=== PATIENT | female | born 1950 | race Caucasian/White ===

== ENCOUNTER → 2018-03-03 | Outpatient (CLI) | payer OTHER ==
[~2018-03-03] MED LIST: ALPRAZOLAM0.5 M2 PO; AMBIEN 5 MG TABL5 M1 PO; ATORVASTATIN CA40 MG PO; BUPROPION XL150 MG PO; COLACE100 MG PO; FUROSEMIDE 40 M40 M1 PO; HYDROCODON-ACE1 EAC7 PO; IBUPROFEN 800800 M1 PO; LISINOPRIL20 MG PO; METAMUCIL1 EAC1 PO; MILK OF MA2400 MG/10 PO; NEURONTIN 300300 M1 PO; PERCOCET PO; SERTRALINE HCL50 MG PO; TRAZODONE HCL100 MG PO; TYLENOL325 MG PO; XANAX1 MG PO; XARELTO10 MG PO
== END ==
LOC: M.MRI 08:26
DX: S83.242A Other tear of medial meniscus, current injury, left knee, initial encounter (principal); M17.12 Unilateral primary osteoarthritis, left knee; M25.462 Effusion, left knee; X58.XXXA Exposure to other specified factors, initial encounter; Y93.89 Activity, other specified; Y92.89 Other specified places as the place of occurrence of the external cause; Y99.8 Other external cause status

== ENCOUNTER 2018-03-21 08:09 | Inpatient (IN) | payer OTHER ==
[2018-03-16 08:54] LABS: HEMATOCRIT 42.3 % (37.0-47.0); HEMOGLOBIN 14.7 gm/dL (12.0-15.0); MCH 33.5 pg (26.0-34.0); MCHC 34.9 g/dL (28.0-37.0); MCV 96.2 fL (80.0-100.0); MPV 7.1 fl. (7.2-11.1); RBC 4.4 mil/uL (4.20-5.00); RDW-CV 12.4 % (10.5-14.5); WBC 5.3 thou/uL (4.0-11.0)
[2018-03-16 09:12] LABS: ALBUMIN 3.8 g/dL (3.4-5.0); CALCIUM 9.3 mg/dL (8.5-10.1); CREATININE 1.1 mg/dL (0.6-1.3); POTASSIUM 3.8 mmol/L (3.5-5.1); TOTAL BILIRUBIN 0.6 mg/dL (<0.1-1.0); TOTAL PROTEIN 6.9 g/dL (6.4-8.2)
[2018-03-16 09:45] LABS: URINE BILIRUBIN NEGATIVE (Negative); URINE BLOOD NEGATIVE (Negative); URINE CLARITY CLOUDY; URINE COLOR YELLOW; URINE GLUCOSE-RANDOM NEGATIVE (Negative); URINE KETONES NEGATIVE (Negative); URINE LEUKOCYTES-REFLEX NEGATIVE (Negative); URINE NITRITE-REFLEX NEGATIVE (Negative); URINE PROTEIN NEGATIVE (Negative); URINE SPECIFIC GRAVITY 1.025 (1.005-1.030); URINE UROBILINOGEN 0.2 E.U./dl (0.2-1.0)
[2018-03-16 10:07] LABS: SQUAMOUS 4-10 Moderate /LPF (0-3)
[2018-03-16 10:09] LABS: MUCUS None Seen strn/LPF (None Seen); URINE RBC 0-2 Rare /HPF (0-2); URINE WBC-REFLEX 0-5 Rare /HPF (0-5)
[2018-03-16 10:10] LABS: CASTS None Seen /LPF (None Seen)
[2018-03-16 10:14] LABS: CRYSTALS None Seen /LPF (None Seen)
--- NOTE | 2018-03-16 11:43 | EKG ---
[place] [address] ELECTROCARDIOGRAM REPORT Name: SAM KU Room: PRE IN [facility]#: [id number] Admission: Attend Phys: Job Gonzalez Discharge: Date of : 50 Report #: [id number] THIS REPORT FOR: //name// [facility] Test Date: 2018-03-16 Test Time: 09:02:28 Pat Name: SAM KU Department: Room: Gender: F Stitcher Feeder: : 1950 Requested By: John Boggs Order Number: [id number] Reading MD: Orlando Sánchez Measurements Intervals Madeline Rate: 80 P: 53 SC: 158 QRS: 27 QRSD: 95 T: 4 QT: 427 QTc: 493 Interpretive Statements Sinus rhythm Consider left atrial enlargement Borderline T abnormalities, anterior leads Borderline prolonged QT interval No previous ECG available for comparison Electronically Signed On 03-16-2018 11:42:49 CDT by Orlando Sánchez [email or web address] <ELECTRONICALLY SIGNED> By: Orlando Sánchez MD, [facility] 03/16/18 1142 0902 09 Orlando Sánchez MD, FACC /EPI
[~2018-03-21] VITALS: Ht 167.6 cm; Wt 127.0 kg
[~2018-03-21 08:09] MED LIST changes: -ALPRAZOLAM0.5 M2 PO; -AMBIEN 5 MG TABL5 M1 PO; -COLACE100 MG PO; -HYDROCODON-ACE1 EAC7 PO; -IBUPROFEN 800800 M1 PO; -METAMUCIL1 EAC1 PO; -MILK OF MA2400 MG/10 PO; -NEURONTIN 300300 M1 PO; -PERCOCET PO; -TYLENOL325 MG PO; -XARELTO10 MG PO
[2018-03-21 14:23] VITALS: BP 122/60
[2018-03-21 20:00] VITALS: BP 134/87
[2018-03-22 00:38] VITALS: BP 108/55
[2018-03-22 04:00] VITALS: BP 129/68
[2018-03-22 04:19] LABS: HEMOGLOBIN 13.7 gm/dL (12.0-15.0)
[2018-03-22 08:30] VITALS: BP 125/54
[2018-03-22 16:27] VITALS: BP 116/57
[2018-03-22 20:00] VITALS: BP 113/48
[2018-03-23 00:37] VITALS: BP 117/49
[2018-03-23 04:18] LABS: HEMATOCRIT 36.4 % (37.0-47.0); HEMOGLOBIN 12.5 gm/dL (12.0-15.0)
[2018-03-23 09:23] VITALS: BP 109/44
[2018-03-23] MEDS ORDERED: ALPRAZOLAM0.5 M2 PO (10:45)
[2018-03-23] MEDS ORDERED: AMBIEN 5 MG TABL5 M1 PO (10:45)
[2018-03-23] MEDS ORDERED: HYDROCODON-ACE1 EAC7 PO (10:51)
[2018-03-23 12:34] VITALS: BP 109/44
[2018-03-23] MEDS ORDERED: COLACE100 MG PO (12:44)
[2018-03-23] MEDS ORDERED: TYLENOL325 MG PO ×2 (12:47)
[2018-03-23] MEDS ORDERED: MILK OF MA2400 MG/10 PO (12:48)
[2018-03-23] MEDS ORDERED: METAMUCIL1 EAC1 PO (12:49)
[2018-03-23] MEDS ORDERED: IBUPROFEN 800800 M1 PO (12:51)
[2018-03-23] MEDS ORDERED: NEURONTIN 300300 M1 PO (12:51)
[2018-03-23] MEDS ORDERED: PERCOCET PO (12:52)
[2018-03-23] MEDS ORDERED: XARELTO10 MG PO (12:53)
[2018-03-23] MEDS ORDERED: SERTRALINE HCL50 MG PO (12:55)
--- NOTE | 2018-04-04 11:47 | OP ---
[address] [address] OPERATIVE REPORT Name: SAM KU Room: [address] IN M.R.#: [id number] Admission: 03/21/18 Attend Phys: Job Gonzalez Discharge: 03/23/18 Date of : 50 Report #: [id number] THIS REPORT FOR: //name// CC: Amanda Marx DATE OF SERVICE: 03/21/2018 PREOPERATIVE DIAGNOSIS: Left knee osteoarthritis. POSTOPERATIVE DIAGNOSIS: Left knee osteoarthritis. PROCEDURE: Left total knee arthroplasty. SURGEON: John Boggs II, DO STATISTICAL CLERK ADVERTISING: YOLA Stoddard ANESTHESIA: General endotracheal. ESTIMATED BLOOD LOSS: 50 mL. ANTIBIOTICS: Ancef preoperatively. DRAINS: Medium Hemovac. COMPLICATIONS: None. DISPOSITION: Stable to recovery room. IMPLANTS: Listed in the operative record and progress note. BRIEF HISTORY: The patient was seen in the preoperative area. Preoperative H and P was performed. Site was marked, questions were answered and risks and benefits were discussed with the patient in detail about the surgery. The patient wished to proceed and assumed all risks. OPERATIVE PROCEDURE: The patient was taken to the operative suite and placed supine on the operating table, given appropriate anesthesia. A well-padded tourniquet applied to the upper thigh and was inflated to 300 mmHg after gravity exsanguination. The operative knee was sterilely prepped and draped. Surgery began by midline incision. This was carried down through the subcutaneous tissues. A medial parapatellar arthrotomy was performed and carried down to bone. The patella was then everted and excess soft tissue removed from around the femur. Femoral cutting block was then applied, checked with a drop ramses for [address] [address] OPERATIVE REPORT Name: SAM KU Room: [address]#: [id number] Admission: 03/21/18 Attend Phys: Job Gonzalez Discharge: 03/23/18 Date of : 50 Report #: [id number] rotational alignment, pinned in appropriate position and appropriate cuts were made. A 4-in-1 cutting block was then applied, checked for rotational alignment, pinned in appropriate position and appropriate cuts were made. The tibia was then exposed. The excess meniscus was removed. Retractor was placed along the collateral ligaments. The tibial cutting block was applied, pinned in appropriate position and checked with a drop ramses for rotational alignment and slope and appropriate cut was made. The tibial bone was removed. The tibial base plate was then applied, checked for rotational alignment with the drop ramses and pinned in appropriate position. The femur was then applied and box cut was reamed. This was then trialed with the appropriate spacer, which showed excellent fit and fill and excellent stability of the knee throughout all range of motion. The patella was then reamed in appropriate fashion and sized to appropriate size. Three peg holes were drilled, it was then trialed and showed excellent flexion, extension, excellent tracking of the patella from the groove. These trials were removed. The tibia was punched in appropriate fashion. Bone ends were cleansed with Pulsavac irrigation. Cement was mixed and applied to the final implants. These were then malleted in position and held the knee in extension and compressed to allow cement to cure. After it cured, excess was removed utilizing a [place] and osteotome. The wound was then copiously irrigated and the final spacer was then malleted in position. The tourniquet was deflated. Hemostasis was maintained with electrocautery. Pain cocktail was injected. PRP gel was sprayed throughout the internal aspects of the knee. Medium Hemovac drain was then applied. Capsule was closed with #2 FiberWire and 1 Vicryl in [id number] fashion. Skin was closed with 2-0 Vicryl and running 3-0 Monocryl. Dermabond and sterile dressing applied. Uli wrap and PolarCare applied. The patient was transported to the recovery in stable condition. Counts were correct throughout the procedure. <ELECTRONICALLY SIGNED> By: John Boggs II, DO 04/04/18 1147 2200 [id number] Boggs II, DO /nt
--- NOTE | 2018-08-10 16:11 | PATH ---
[address] [address] PATHOLOGY RPT PROCEDURE Name: WANDA NIETO Room: [address] IN .R.#: [id number] Admission: 03/21/18 Date of : 50 Discharge: 03/23/18 Report #: [id number] Path Case #: [id number] [facility] Accession Number: [id number] . 01 Material submitted: . LEFT KNEE BONE AND TISSUE . 01 Clinical history: . Left knee DJD . 02 Diagnosis: Left knee bone and tissue, total knee replacement: - Benign synovium and meniscus and benign bone and cartilage with degenerative changes. (ESTELA:db; 03/23/2018) LBQ/03/23/2018 . 02 Electronically signed: . Morro Kauffman MD, Pathologist NPI- [id number] . 01 Gross description: . Received in formalin labeled "Wanda Nieto, left knee bone and tissue," are multiple segments of bone, including tibial plateau, measuring 12.4 x 11.9 x 2.9 cm in greatest dimensions. Soft tissue and meniscus are present. Upon extensive sectioning, eburnation of the articular surfaces is not grossly evident. Signal Maintainer bone and soft tissue are submitted in cassette A1, following decalcification. (DAC; 03/22/2018) XDC/XDC . 02 CPT . 168760, [id number] Specimen Comment: A duplicate report has been generated due to demographic updates. Performed at: [address] [facility], [place] [id number] MD Wojciech Davis MD Phone: [phone] Performed at: [facility] [address] [place], [place] [id number] MD Morro Kauffman MD Phone: [phone]
== END 2018-03-23 14:50 | DRG 470 ==
LOC: M.ORTHSURG 08:09 → M.TBA 08:09 → M.PRE 09:09 → M.ORTHSURG 12:36 → M.PRE 14:10 → M.ORTHSURG 03-23 14:50 → M.PRE 03-28 07:22
PROVIDERS: Orthopaedic Surgery; ADMIT Internal Medicine
PROC: 0SRD0J9 Replacement of Left Knee Joint with Synthetic Substitute, Cemented, Open Approach (ICD-10-PCS; principal; 2018-03-21)
DX: M17.12 Unilateral primary osteoarthritis, left knee (principal); F43.10 Post-traumatic stress disorder, unspecified; I10 Essential (primary) hypertension; F32.9 Major depressive disorder, single episode, unspecified; E78.5 Hyperlipidemia, unspecified; Z79.899 Other long term (current) drug therapy